=== PATIENT | male | born 1990 | race Two or more races ===

== ENCOUNTER 2024-04-27 19:15 | Emergency (ER) | payer BC, SELFPAY ==
[2024-04-27 19:15] VITALS: BMI 39.5
[2024-04-27 19:56] VITALS: BP 144/82; PULSE 97; RESP 18; TEMP 36.9; O2SAT 99
--- NOTE | 2024-04-27 20:14 | PD.EDSKIN ---
ED Skin Abcess FB-RME/HPI General Chief complaint: Skin/Abscess/Foreign Body Stated complaint: RASH ALL OVER X 1230 Time Seen by Provider: 04/27/24 19:49 Arrival date/time: 04/27/24 19:15 34-year-old male with no known allergies reports with complaints of a rash all over his body. Patient states sometime this afternoon after eating lunch she developed a rash. Patient denies any tongue swelling shortness of breath throat closing fever or chills. Patient states that he was evaluated by his primary care provider who prescribed antihistamines and steroids. Patient admits to not picking up the medicines and stating that he is not better so he is here in the emergency department Limitations: no limitations Related Data Allergies Allergy/AdvReac Type Severity Reaction Status Date / Time No Known Allergies Allergy Verified 04/27/24 19:17 Review of Systems Constitutional Constitutional: Denies chills, Denies fever(s) and Denies headache(s) ENT Ears, Nose, Mouth, and Throat: Denies dizziness, Denies headache(s), Denies throat swelling and Denies tongue swelling Cardiovascular Cardiovascular: Denies chest pain, Denies dyspnea and Denies syncope Respiratory Respiratory: Denies cough and Denies dyspnea Gastrointestinal Gastrointestinal: Denies nausea and Denies vomiting Musculoskeletal Musculoskeletal: Denies arthralgias, Denies deformity and Denies joint swelling Integumentary/Breasts Skin/Breast: Reports erythema, Reports pruritus and Reports rash Neurologic Neurologic: Denies dizziness, Denies headache(s) and Denies syncope Hematologic/Lymphatic Hematologic/Lymphatic: Denies easy bleeding and Denies easy bruising Allergic/Immunologic Allergic/Immunologic: Denies throat swelling and Denies tongue swelling Past Medical History Social History SMOKING STATUS: Current some day smoker ED Exam General Limitations: Present no limitations General appearance: Present alert and in no apparent distress Head Head exam: Present atraumatic Eye Eye exam: Present normal appearance, PERRL and EOMI ENT ENT exam: Present normal exam, normal oropharynx, mucous membranes moist and other (Airway patent no tongue swelling) Neck Neck exam: Present normal inspection, full ROM and trachea midline Chest Chest inspection: Present normal inspection and symmetric chest wall rise Respiratory Respiratory exam: Present normal lung sounds bilaterally Cardiovascular Cardiovascular exam: Present regular rate, normal rhythm and normal heart sounds Abdominal Exam Abdominal exam: Present soft and normal bowel sounds Extremities Exam Extremities exam: Present normal inspection and full ROM Back Exam Back exam: Present normal inspection and full ROM Neurological Exam Neurological exam: Present alert, oriented X3 and CN II-XII intact Psychiatric Psychiatric exam: Present normal affect and normal mood Skin Skin exam: Present warm, dry, intact and rash (Large hives diffusely over trunk and extremities) Course Quality Measures none Vital Signs Vital signs: Vital Signs Temperature 98.5 F 04/27/24 19:56 Pulse Rate 97 04/27/24 19:56 Respiratory Rate 18 04/27/24 19:56 Blood Pressure 144/82 H 04/27/24 19:56 Pulse Oximetry (%) 99 04/27/24 19:56 Oxygen Delivery Method Room Air 04/27/24 19:56 Skin / Abscess / Foreign Body Patient data External records reviewed:: None Clinical information provided by:: patient Social determinants that could affect healthcare access:: none Patient has the following chronic illnesses:: none How is presenting disease/condition affected by chronic disease/condition?: no chronic disease Evaluation data The following diagnostics were reviewed and interpreted by me:: other (specify) Lab and/or radiology exams considered but not ordered:: none Interpretation Summary: none Medications / Prescriptions Medications or Prescriptions considered but not ordered:: none Medication administrations:: Dexamethasone 10 mg IM Consultations Consultation(s) initiated? (list below): No Diagnosis Skin/Abscess Differential Diagnosis: urticaria, insect bites and contact dermatitis Most likely diagnosis given after review of the tests above:: Allergic reaction Admission Indicated Admission indicated?: not indicated Admission Request Was there a request for admission?: No Disposition Plan Disposition Plan: Discharge Discharge Attestation Discharge Attestation: The patient and all family members were given an opportunity to ask questions and understood the discharge instructions. Discharge instructions specifically effects, indications for sooner follow up or return to the emergency department, and the expected course of current diagnosis. Patient condition: Stable Discharge Plan Plan Patient Disposition: HOME (Self Care) Problem List Clinical Impression: Allergic reaction Patient/Caregiver Discharge Instructions Discharge Activity: activity as tolerated Additional Instructions: Fill the prescription prescribed by your primary care and start to take the medicine tomorrow hydrate well follow-up with your PCP as needed. You should also request a referral to an salmon gillnet vessel operator to identify what is causing your allergic reaction. Return to the emergency department if symptoms should worsen Print Language: Taiwanese Stand Alone Forms: [employer] Award Info., Patient Portal Info Letter
[2024-04-27] MEDS: DEXAMETHASONE SOD PHOS INJ 10 MG/ML VIAL IM (20:18)
== END 2024-04-27 21:33 | disposition home or self-care (01) ==
LOC: SERX 20:24
PROVIDERS: Emergency Provider Emergency Medicine; PCP Family Medicine
DX: T78.1XXA Other adverse food reactions, not elsewhere classified, initial encounter (principal); L50.0 Allergic urticaria
CPT/HCPCS: 96372; 99283; J1100